=== PATIENT | female | born 1945 | race Caucasian/White ===

== ENCOUNTER 2017-05-28 13:02 | Emergency (ER) | payer OTHER ==
[2017-05-28 13:02] VITALS: BP 133/69; PULSE 96; RESP 18; TEMP 99.5; O2SAT 94
--- NOTE | 2017-05-28 13:09 | PD ---
HPI Chief Complaint: Lightheadedness Time Seen by Provider: 13:06 Travel History International Travel<30 days: No Contact w/Intl Traveler<30days: No Traveled to known affect area: No History of Present Illness HPI Patient was given a history that she had this fungal infection of her right thumb, she is camping nearby and is visiting from [place], and while she was ambulating to the nearest urgent care as she started to get lightheaded dizzy and feel like she was going to faint so 911 was called and she was picked up and route and brought to the emergency department. In route her temperature apparently was 101 however by the time she arrived to the emergency department her temperature was down to 98 after ice packs have been applied to her. Patient also complained of feeling flushed to the face. Patient denies any alleviating or aggravating factors. Patient also denies any associated factors such as headache, chest pain, abdominal pain, back pain, nausea, vomiting, diarrhea, rash. No known drug allergy Patient denies any significant past medical history or past surgical history. Allergies-Medications (Allergen,Severity, Reaction): Coded Allergies: No Known Allergies (Unverified , 05/28/17) Reported Meds & Prescriptions Reported Meds & Active Scripts Active Reported [place] Carbonate 150 Mg Cap 150 Mg PO TID Review of Systems General / Constitutional: No: Fever Eyes: No: Visual changes HENT: Positive: Lightheadedness Cardiovascular: No: Chest Pain or Discomfort Respiratory: No: Shortness of Breath Gastrointestinal: No: Abdominal Pain Genitourinary: No: Dysuria Musculoskeletal: No: Pain Skin: No Rash Neurologic: No: Weakness Psychiatric: No: Depression Endocrine: No: Polydipsia Hematologic/Lymphatic: No: Easy Bruising Physical Exam Narrative GENERAL: SKIN: Warm and dry. Flushed facies. HEAD: Atraumatic. Normocephalic. EYES: Pupils equal and round. No scleral icterus. No injection or drainage. ENT: No nasal bleeding or discharge. Mucous membranes pink and moist. NECK: Trachea midline. No JVD. CARDIOVASCULAR: Regular rate and rhythm. RESPIRATORY: No accessory muscle use. Clear to auscultation. Breath sounds equal bilaterally. GASTROINTESTINAL: Abdomen soft, non-tender, nondistended. MUSCULOSKELETAL: Extremities without clubbing, cyanosis, or edema. No obvious deformities. NEUROLOGICAL: Awake and alert. No obvious cranial nerve deficits. Motor grossly within normal limits. Five out of 5 muscle strength in the arms and legs. Normal speech. PSYCHIATRIC: Appropriate mood and affect; insight and judgment normal. Data Data Last Documented VS Vital Signs Date Time Temp Pulse Resp B/P (MAP) Pulse Ox O2 Delivery O2 Flow Rate FiO2 05/28/17 13:32 94 Room Air 05/28/17 13:30 18 05/28/17 13:28 90 05/28/17 13:02 99.5 Orders Orders Electrocardiogram (05/28/17 13:12) B-Type Natriuretic Peptide (05/28/17 13:12) Complete Blood Count With Diff (05/28/17 13:12) Comprehensive Metabolic Panel (05/28/17 13:12) Prothrombin Time / Inr (Pt) (05/28/17 13:12) Act Partial Throm Time (Ptt) (05/28/17 13:12) Troponin I (05/28/17 13:12) Lipase (05/28/17 13:12) Chest, Single Ap (05/28/17 13:12) Ecg Monitoring (05/28/17 13:12) Bilateral Bp Monitoring (05/28/17 13:12) Iv Access Insert/Monitor (05/28/17 13:12) Oximetry (05/28/17 13:12) Oxygen Administration (05/28/17 13:12) Sodium Chloride 0.9% Flush (Ns Flush) (05/28/17 13:15) Ct Brain W/O Iv Contrast(Rout) (05/28/17 13:12) Sodium Chlor 0.9% 1000 Ml Inj (Ns 1000 M (05/28/17 13:12) Labs Laboratory Tests Test 05/28/17 13:17 White Blood Count 8.6 TH/MM3 Red Blood Count 4.71 MIL/MM3 Hemoglobin 13.6 GM/DL Hematocrit 41.2 % Mean Corpuscular Volume 87.4 FL Mean Corpuscular Hemoglobin 28.8 PG Mean Corpuscular Hemoglobin Concent 33.0 % Red Cell Distribution Width 12.9 % Platelet Count 222 TH/MM3 Mean Platelet Volume 9.2 FL Neutrophils (%) (Auto) 76.2 % Lymphocytes (%) (Auto) 12.9 % Monocytes (%) (Auto) 8.1 % Eosinophils (%) (Auto) 1.7 % Basophils (%) (Auto) 1.1 % Neutrophils # (Auto) 6.6 TH/MM3 Lymphocytes # (Auto) 1.1 TH/MM3 Monocytes # (Auto) 0.7 TH/MM3 Eosinophils # (Auto) 0.1 TH/MM3 Basophils # (Auto) 0.1 TH/MM3 CBC Comment DIFF FINAL Differential Comment Prothrombin Time 9.6 SEC Prothromb Time International Ratio 0.9 RATIO Activated Partial Thromboplast Time 18.8 SEC Blood Urea Nitrogen 19 MG/DL Creatinine 1.30 MG/DL Random Glucose 135 MG/DL Total Protein 7.4 GM/DL Albumin 3.6 GM/DL Calcium Level 9.4 MG/DL Alkaline Phosphatase 100 U/L Aspartate Amino Transf (AST/SGOT) 16 U/L Alanine Aminotransferase (ALT/SGPT) 29 U/L Total Bilirubin 0.3 MG/DL Sodium Level 140 MEQ/L Potassium Level 4.0 MEQ/L Chloride Level 110 MEQ/L Carbon Dioxide Level 19.4 MEQ/L Anion Gap 11 MEQ/L Estimat Glomerular Filtration Rate 41 ML/MIN Troponin I LESS THAN 0.02 NG/ML B-Type Natriuretic Peptide 111 PG/ML Lipase 351 U/L [facility] Medical Decision Making Medical Screen Exam Complete: Yes Emergency Medical Condition: Yes Medical Record Reviewed: Yes Interpretation(s) EKG shows normal sinus rhythm, 90 bpm, frequent unifocal PVCs, without any evidence of ST elevation [place]. There are some nonspecific ST-T wave changes. Differential Diagnosis Near syncope versus anemia versus dehydration versus hit related illness Narrative Course CBC shows no leukocytosis, no anemia, no left shift and normal platelet count. Coagulation profile is within normal limits. Chemistries show normal electrolytes with the exception of slight prerenal azotemia creatinine 1.3 GFR 41 normal liver function test normal alk phos normal lipase and normal beta natruretic peptide as well as a negative troponin. Chest x-ray shows no infiltrates or any evidence of pneumothorax at this present time. Patient's head CT is negative for any evidence of intracranial hemorrhage, skull fracture Or any sinusitis Diagnosis Primary Impression: nearsyncope Patient Instructions: General Instructions, Heat Exhaustion (ED) Disposition: 01 DISCHARGE HOME Condition: Stable Zachary Melgar MD May 28, 2017 13:09
[2017-05-28] MEDS ORDERED: SODIUM CHLOR 0.9% 1000 ML INJ 1,000 ML IV SCH (13:12)
[2017-05-28] MEDS ORDERED: LITH150C PO (13:15)
[2017-05-28] MEDS ORDERED: SODIUM CHLORIDE 0.9% FLUSH 10 ML FLUSH IVF PRN (13:15)
[2017-05-28 13:28] VITALS: BP_SYST 114; BP_SYST 118; BP_DIAS 54; BP_DIAS 59; PULSE 90
[2017-05-28 13:28] LABS: AUTOMATED NEUTROPHIL # 6.6 TH/MM3 (1.8-7.7); BASOPHIL # 0.1 TH/MM3 (0-0.2); BASOPHIL % 1.1 % (0.0-2.0); EOSINOPHIL # 0.1 TH/MM3 (0-0.4); EOSINOPHIL % 1.7 % (0.0-4.0); HEMATOCRIT 41.2 % (35.0-46.0); HEMOGLOBIN 13.6 GM/DL (11.6-15.3); LYMPH % 12.9 % (9.0-44.0); LYMPHOCYTE # 1.1 TH/MM3 (1.0-4.8); MEAN CELL VOLUME 87.4 FL (80.0-100.0); MEAN CORPUSCULAR HEMOGLOBIN 28.8 PG (27.0-34.0); MEAN PLATELET VOLUME 9.2 FL (7.0-11.0); MONO % 8.1 % (0.0-8.0); MONOCYTE # 0.7 TH/MM3 (0-0.9); NEUT % 76.2 % (16.0-70.0); PLATELET COUNT 222 TH/MM3 (150-450); RED BLOOD COUNT 4.71 MIL/MM3 (4.00-5.30); RED CELL DISTRIBUTION WIDTH 12.9 % (11.6-17.2); WHITE BLOOD COUNT 8.6 TH/MM3 (4.0-11.0)
[2017-05-28 13:30] VITALS: RESP 18; O2SAT 94
[2017-05-28 13:35] LABS: CHLORIDE 110 MEQ/L (98-107); SODIUM (NA) 140 MEQ/L (136-145)
[2017-05-28 13:39] LABS: ALBUMIN 3.6 GM/DL (3.4-5.0); BICARBONATE 19.4 MEQ/L (21.0-32.0); BLOOD UREA NITROGEN 19 MG/DL (7-18); CALCIUM 9.4 MG/DL (8.5-10.1); GLUCOSE,RANDOM 135 MG/DL (74-106)
[2017-05-28 13:40] LABS: INTERNATIONAL NORMALIZED RATIO 0.9 RATIO; PROTHROMBIN TIME - PATIENT 9.6 SEC (9.8-11.6)
[2017-05-28 13:42] LABS: ALT (GPT) 29 U/L (10-53); AST (GOT) 16 U/L (15-37); GLOMERULAR FILTRATION RATE 41 ML/MIN (>89)
[2017-05-28 13:44] LABS: TOTAL BILIRUBIN ADULT 0.3 MG/DL (0.2-1.0); TOTAL PROTEIN 7.4 GM/DL (6.4-8.2)
[2017-05-28 13:45] LABS: ALKALINE PHOSPHATASE 100 U/L (45-117)
[2017-05-28 13:47] LABS: TROPONIN I LESS THAN 0.02 NG/ML (0.02-0.05)
--- NOTE | 2017-05-28 14:12 | RADRPT ---
EXAM DATE/TIME: 05/28/2017 13:33 [facility] COMPARISON: No previous studies available for comparison. INDICATIONS : Syncopal episode, heat exhaustion. MEDICAL HISTORY : None. SURGICAL HISTORY : Right oophorectomy. ENCOUNTER: Initial ACUITY: 1 day PAIN SCORE: 0/10 LOCATION: chest FINDINGS: A single view of the chest demonstrates the lungs to be symmetrically aerated without evidence of mas s, infiltrate or effusion. Mild tortuosity of the thoracic aorta. Osseous structures are intact. CONCLUSION: No infiltrates seen. No evidence of pneumothorax. Shon Benoit MD on May 28, 2017 at 14:09 Board Certified Radiologist. This report was verified electronically.
--- NOTE | 2017-05-28 14:42 | RADRPT ---
EXAM DATE/TIME: 05/28/2017 14:19 [facility] COMPARISON: No previous studies available for comparison. INDICATIONS : Near syncopal episode. Dizziness, weakness, fever. RADIATION DOSE: 61.14 CTDIvol (mGy) MEDICAL HISTORY : None SURGICAL HISTORY : None. ENCOUNTER: Initial ACUITY: 1 day PAIN SCALE: 0/10 LOCATION: cranial TECHNIQUE: Multiple contiguous axial images were obtained of the head. Using automated exposure control and adj ustment of the mA and/or kV according to patient size, radiation dose was kept as low as reasonably a chievable to obtain optimal diagnostic quality images. DICOM format image data is available electro nically for review and comparison. FINDINGS: CEREBRUM: The ventricles are normal for age. No evidence of midline shift, mass lesion, hemorrhage or acute in farction. No extra-axial fluid collections are seen. Incidental note of cavum septum pellucidum. POSTERIOR FOSSA: The cerebellum and brainstem are intact. The 4th ventricle is midline. The cerebellopontine angle i s unremarkable. EXTRACRANIAL: The visualized portion of the orbits is intact. SKULL: The calvaria is intact. No evidence of skull fracture. CONCLUSION: 1. No acute findings in the brain. Shon Benoit MD on May 28, 2017 at 14:35 Board Certified Radiologist. This report was verified electronically.
--- NOTE | 2017-05-29 13:57 | EKG ---
Date Performed: 05/28/2017 Time Performed: 13:21:55 PTAGE: 71 years EKG: Sinus rhythm WITH FREQUENT VENTRICULAR PREMATURE COMPLEXES NONSPECIFIC ST & T-WAVE ABNORMALITY ABNORMAL RHYTHM EC G NO PREVIOUS TRACING 05/28/2017 1321 DOCTOR: Tisha Arteaga Interpretating Date/Time 05/29/2017 13:56:08
== END 2017-05-28 15:13 | disposition home or self-care (01) ==
LOC: PHED 13:02
DX: R55 Syncope and collapse (principal); R94.31 Abnormal electrocardiogram [ECG] [EKG]; Z79.899 Other long term (current) drug therapy
CPT/HCPCS: 70450; 71045; 80053; 83690; 83880; 84484; 85025; 85610; 85730; 93005; 96360; 99285; J7030